=== PATIENT | female | born 1960 | race Caucasian/White ===

== ENCOUNTER → 2018-01-14 | Outpatient (CLI) | payer SELFPAY ==
[~2018-01-14] MED LIST: CYAN1000 PO; VITAMIN D-32000 UNIT PO
[2018-01-24 15:19] LABS: HPV Genotype 16 Not Detected (NOTDET); HPV Genotype 18 Not Detected (NOTDET); HPV High Risk Other Not Detected (NOTDET); Source Cervix
== END | disposition home or self-care (01) ==
LOC: LAB 12:07 → LAB SHORT 12:07
PROVIDERS: Physician Assistant
DX: Z12.4 Encounter for screening for malignant neoplasm of cervix (principal)
CPT/HCPCS: 87625; G0123

== ENCOUNTER → 2018-01-24 | Outpatient (CLI) | payer SELFPAY | LOC: PLD 11:13 → LAB 11:13 → LAB SHORT 11:13 | DX: N76.0 Acute vaginitis (principal); R87.619 Unspecified abnormal cytological findings in specimens from cervix uteri | CPT/HCPCS: 87070; 87205; 88305 ==

== ENCOUNTER 2019-05-05 07:33 | Day surgery (SDC) | payer OTHER ==
[~2019-05-05] VITALS: Ht 162.6 cm; Wt 113.3 kg
[2019-05-05] MEDS ORDERED: ADULT ASPIRIN R81 MG PO (08:18)
[2019-05-05] MEDS ORDERED: AMIT10 PO (08:25)
[2019-05-05] MEDS ORDERED: ERGO400 PO (08:26)
[2019-05-05] MEDS ORDERED: AMIT25 PO (08:26)
[2019-05-05] MEDS ORDERED: VITAMIN B122500 MCG PO (08:27)
[2019-05-05] MEDS ORDERED: Multivitamin1 EAC1 PO (08:27)
--- NOTE | 2019-05-05 09:21 | NUR ---
05/05/19 0921 Alexandria Mattson 150CC NACL FLUID DEFICIT FROM MYOSURE
--- NOTE | 2019-05-05 13:21 | NUR ---
05/05/19 1321 Jono Polo LATE ENTRY GAVE REPORT TO [facility].KT AT 1013
== END 2019-05-05 10:50 | disposition home or self-care (01) ==
LOC: ORSCSDS 07:33
PROVIDERS: Obstetrics & Gynecology
PROC: 0UDB8ZX Extraction of Endometrium, Via Natural or Artificial Opening Endoscopic, Diagnostic (ICD-10-PCS; principal; 2019-05-05 08:45)
DX: N95.0 Postmenopausal bleeding (principal); N84.0 Polyp of corpus uteri; E78.00 Pure hypercholesterolemia, unspecified; E66.01 Morbid (severe) obesity due to excess calories; Z68.41 Body mass index [BMI] 40.0-44.9, adult; Z79.899 Other long term (current) drug therapy; Z79.82 Long term (current) use of aspirin
CPT/HCPCS: 88305; J0690; J1100; J1885; J2250; J2405; J2704; J3010; J7120

== ENCOUNTER 2022-02-06 08:13 | Day surgery (SDC) | payer OTHER ==
[~2022-02-06] VITALS: Ht 162.6 cm; Wt 115.9 kg
[~2022-02-06 08:13] MED LIST changes: +ADULT ASPIRIN R81 MG PO; +AMIT10 PO; +AMIT25 PO; +BASAGLAR K100 UNIT/1 SC; +ERGO400 PO; +Multivitamin1 EAC1 PO; +VITAMIN B122500 MC1 PO; +VITAMIN B122500 MCG PO; +VITAMIN D310 MC5 PO; +VITAMIN D325 MC3 PO
--- NOTE | 2022-02-06 08:41 | NUR ---
Ambulatory in Day Surgery History, Chart, Medications and Allergies reviewed before start of procedure.Patient confirms NPO status and agrees with scheduled surgery. Pre-Op teaching done. Pt verbalizes understanding. Patient States Post-Procedure ride home has been arranged.
--- NOTE | 2022-02-06 09:08 | NUR ---
02/06/22 0908 Miri Love HISTORY,CHART, MEDICATIONS AND ALLERGIES REVIEWED BEFORE START OF PROCEDURE. PATIENT CONFIRMS NPO STATUS AND AGREES WITH SCHEDULED PROCEDURE. 3-LEAD EKG REVIEWED WITH PHYSICIAN PRIOR TO START OF PROCEDURE. MONITOR INTACT WITH CONTINUOUS PULSE OXIMETRY AND INTERMITTENT BP. SUPPLEMENTAL O2 TO BE TITRATED THROUGHOUT PROCEDURE TO MAINTAIN O2 SATURATION ABOVE 90%. PATIENT DETERMINED TO BE ASA APPROPRIATE FOR MODERATE SEDATION PRIOR TO START OF PROCEDURE BY DR. LACKEY
--- NOTE | 2022-02-06 10:06 | NUR ---
Discharge instructions reviewed with patient. Patient verbalizes understanding. Copy given to patient to take home. Discharged via wheelchair to private car for ride home.
== END 2022-02-06 10:05 | disposition home or self-care (01) ==
LOC: ORSCMMR 08:13 → ORD 09:00 → ORSCMMR 10:05
PROVIDERS: Internal Medicine Gastroenterology
PROC: 0DBM8ZX Excision of Descending Colon, Via Natural or Artificial Opening Endoscopic, Diagnostic (ICD-10-PCS; principal; 2022-02-06 09:00)
DX: Z12.11 Encounter for screening for malignant neoplasm of colon (principal); Z86.010 Personal history of colon polyps; Z80.0 Family history of malignant neoplasm of digestive organs; D12.4 Benign neoplasm of descending colon; E66.01 Morbid (severe) obesity due to excess calories; Z68.42 Body mass index [BMI] 45.0-49.9, adult; E11.9 Type 2 diabetes mellitus without complications; Z79.82 Long term (current) use of aspirin; Z79.4 Long term (current) use of insulin; Z79.899 Other long term (current) drug therapy
CPT/HCPCS: 82947; 88305; J2250; J3010; J7120

== ENCOUNTER 2022-08-14 12:29 | Emergency (ER) | payer OTHER ==
[~2022-08-14] VITALS: Ht 160 cm; Wt 117.9 kg
[2022-08-14 14:17] LABS: BASOPHILS ABSOLUTE AUTO 0.06 K/mm3 (0.00-0.23); BASOPHILS PERCENT AUTO 1 % (0-2); EOSINOPHILS ABSOLUTE AUTO 0.04 K/mm3 (0.00-0.68); EOSINOPHILS PERCENT AUTO 0 % (0-6); Hematocrit 41.6 % (33.0-51.0); Hemoglobin 13.6 g/dL (11.5-16.0); IMMATURE GRAN ABSOLUTE AUTO 0.07 K/mm3 (0.00-0.10); IMMATURE GRAN PERCENT AUTO 1 % (0-1); LYMPHOCYTES ABSOLUTE AUTO 1.91 K/mm3 (0.84-5.20); LYMPHOCYTES PERCENT AUTO 20 % (21-46); MONOCYTES ABSOLUTE AUTO 0.56 K/mm3 (0.16-1.47); MONOCYTES PERCENT AUTO 6 % (4-13); Mean Corpuscular HGB 30.8 pg (26.0-34.0); Mean Corpuscular HGB Conc 32.7 g/dL (31.5-36.5); Mean Corpuscular Volume 94 fL (80-100); Mean Platelet Volume 10.7 fL (9.1-12.4); NEUTROPHILS ABSOLUTE AUTO 7.07 K/mm3 (1.96-9.15); NEUTROPHILS PERCENT AUTO 73 % (41-73); Platelet Count 331 K/mm3 (150-400); RDW Coefficient Variation 14.2 % (11.7-14.2); RDW Standard Deviation 49.2 fL (35.1-46.3); Red Blood Cell Count 4.42 M/mm3 (3.80-5.20); White Blood Cell Count 9.71 K/mm3 (4.00-11.30)
[2022-08-14 14:39] LABS: Albumin, Blood 3.8 g/dL (3.4-5.0); Bilirubin, Total 0.3 mg/dL (0.1-1.0); Bun/Creatinine Ratio 15.2 (12.0-20.0); Calcium, Blood 9.3 mg/dL (8.5-10.1); Creatinine, Blood 0.73 mg/dL (0.40-1.00); Globulin, Blood 3.9 g/dL (2.2-4.0); Potassium, Blood 4.4 mmol/L (3.5-5.5); Total Protein, Blood 7.7 g/dL (6.4-8.2)
[2022-08-14] MEDS ORDERED: INSULIN GL100 UNIT/2 (15:40)
[2022-08-14] MEDS ORDERED: METF500 PO (15:40)
[2022-08-14 17:49] LABS: Influenza A, PCR NEGATIVE (NEGATIVE); Influenza B, PCR NEGATIVE (NEGATIVE); Resp Syncytial Virus, PCR NEGATIVE (NEGATIVE); SARS-Cov-2 (COVID-19) PCR, MMC NEGATIVE (NEGATIVE)
== END 2022-08-14 20:32 | disposition short-term general hospital (02) ==
LOC: ER 12:29
PROVIDERS: Emergency Medicine; Physician Assistant
DX: H53.9 Unspecified visual disturbance (principal); E11.9 Type 2 diabetes mellitus without complications; Z79.4 Long term (current) use of insulin; Z79.82 Long term (current) use of aspirin; Z79.899 Other long term (current) drug therapy; Z20.822 Contact with and (suspected) exposure to COVID-19
CPT/HCPCS: 0241U; 36415; 70450; 71260; 74177; 80053; 82947; 85025; A9270; J1100; J7030; Q9967

== ENCOUNTER 2022-09-23 12:22 | Emergency (ER) | payer OTHER ==
[~2022-09-23] VITALS: Ht 160 cm; Wt 108.9 kg
[~2022-09-23 12:22] MED LIST changes: +INSULIN GL100 UNIT/2 SC; +METF500 PO
[2022-09-23] MEDS ORDERED: BACTRIM DS TAB1 EAC1 PO (16:10)
[2022-09-23] MEDS ORDERED: CEPH500 PO (16:10)
== END 2022-09-23 16:20 | disposition home or self-care (01) ==
LOC: ER 12:22
DX: L02.214 Cutaneous abscess of groin (principal); L03.314 Cellulitis of groin; E11.9 Type 2 diabetes mellitus without complications; Z79.4 Long term (current) use of insulin; Z79.899 Other long term (current) drug therapy; Z79.82 Long term (current) use of aspirin
CPT/HCPCS: 10060; 99283-25

== ENCOUNTER 2022-09-26 21:48 | Inpatient (IN) | payer OTHER ==
[~2022-09-26] VITALS: Ht 160 cm; Wt 110.3 kg
[~2022-09-26 21:48] MED LIST changes: +BACTRIM DS TAB1 EAC1 PO; +CEPH500 PO
[2022-09-26 23:08] LABS: Influenza A, PCR NEGATIVE (NEGATIVE); Influenza B, PCR NEGATIVE (NEGATIVE); Resp Syncytial Virus, PCR NEGATIVE (NEGATIVE); SARS-Cov-2 (COVID-19) PCR, MMC NEGATIVE (NEGATIVE)
[2022-09-26 23:15] LABS: BASOPHILS ABSOLUTE AUTO 0.05 K/mm3 (0.00-0.23); BASOPHILS PERCENT AUTO 1 % (0-2); EOSINOPHILS ABSOLUTE AUTO 0.03 K/mm3 (0.00-0.68); EOSINOPHILS PERCENT AUTO 0 % (0-6); Hematocrit 39.9 % (33.0-51.0); Hemoglobin 13.3 g/dL (11.5-16.0); IMMATURE GRAN ABSOLUTE AUTO 0.13 K/mm3 (0.00-0.10); IMMATURE GRAN PERCENT AUTO 2 % (0-1); LYMPHOCYTES ABSOLUTE AUTO 0.89 K/mm3 (0.84-5.20); LYMPHOCYTES PERCENT AUTO 11 % (21-46); MONOCYTES ABSOLUTE AUTO 0.27 K/mm3 (0.16-1.47); MONOCYTES PERCENT AUTO 3 % (4-13); Mean Corpuscular HGB 30.4 pg (26.0-34.0); Mean Corpuscular HGB Conc 33.3 g/dL (31.5-36.5); Mean Corpuscular Volume 91 fL (80-100); Mean Platelet Volume 11.4 fL (9.1-12.4); NEUTROPHILS ABSOLUTE AUTO 7.11 K/mm3 (1.96-9.15); NEUTROPHILS PERCENT AUTO 84 % (41-73); Platelet Count 182 K/mm3 (150-400); RDW Coefficient Variation 16.3 % (11.7-14.2); Red Blood Cell Count 4.37 M/mm3 (3.80-5.20); White Blood Cell Count 8.48 K/mm3 (4.00-11.30)
[2022-09-27 00:17] LABS: Alanine Aminotransfer (ALT/SGP 40 U/L (12-78); Albumin, Blood 2.2 g/dL (3.4-5.0); Albumin/Globulin Ratio 0.5 (0.8-1.8); Alk Phos 106 U/L (50-136); Anion Gap 10 mmol/L (6-16); Aspartate Aminotrans (AST/SGOT 24 U/L (12-37); Bilirubin, Total 0.3 mg/dL (0.1-1.0); Blood Urea Nitrogen 9 mg/dL (8-24); Bun/Creatinine Ratio 11.3 (12.0-20.0); C-REACTIVE PROTEIN, EXT RANGE >19.000 mg/dL (0.000-0.300); CO2, Blood 24 mmol/L (21-32); Calcium, Blood 9.7 mg/dL (8.5-10.1); Chloride, Blood 103 mmol/L (98-108); Globulin, Blood 4.6 g/dL (2.2-4.0); Glomerular Filtration Rate 83 (60-); Glucose, Blood 238 mg/dL (70-99); Potassium, Blood 3.2 mmol/L (3.5-5.5); Sodium, Blood 137 mmol/L (136-145); Total Protein, Blood 6.8 g/dL (6.4-8.2)
[2022-09-27 00:46] LABS: Magnesium, Blood 2.1 mg/dL (1.6-2.4)
[2022-09-27] MEDS ORDERED: AMIT75 PO (10:59)
--- NOTE | 2022-09-27 15:06 | NUR ---
Upon receiving a referral for spiritual care, I visit pt. Pt talks about her medical history that really became disruptive a month and a half ago. Pt talks about her guilt for the neglect and lack of self care she has placed on her body. She also shares about her Mosque briseida that she leans on for hope, strength and healing. Pt is very clear about the fact that, because of her briseida, she has peace about if the other options don't come to pass. She tells me about her spiritual experiences and what they mean to her. She speaks about her family and the solid support that they are to her. I normailzed her struggles, reinforced helpful attitudes and practices and provided therapeutic listening and prayer. I will continue to remain available to pt and family.
--- NOTE | 2022-09-27 19:22 | NUR ---
SHIFT SUMMARY SINCE ARRIVAL TO UNIT, PT HAS BEEN WORRIED ABOUT ABSCESS. ALERT & PLEASANT BUT WORRIED. FEELS BETTER AFTER DR IRVIN ROUNDED. UP 1 ASSIST TO USE BATHROOM. MODERATE AMOUNT OF DRNG, PURULENT/SS.
--- NOTE | 2022-09-28 04:20 | NUR ---
SHIFT SUMMARY PATIENT ADMITTED FOR R LEG/GROIN ABSCESS. IV ABX STARTED AND FLUIDS RUNNING IN L AC IV. GROIN SITE WAS LANCED OPEN IN ED WITH WICK PLACED. DRAINING SEROSANGUINEOUS FLUID. REDDNESS ON R UPPER LEG TRACED WITH MARKER FOR ASSESSMENT. WARM/HOT, PAINFUL TO TOUCH. MEDICATED FOR PAIN PER EMAR. ABLE TO AMBULATE BSC 1-2 ASSIST GB, FWW. PATIENT HAD SOME WEAKNESS DUE TO PAIN. ABLE TO VOID EASILY. TOLERATED PO CL THIS SHIFT. PLAN FOR ABX AND POSSIBLY SURGICAL INTERVENTION. VSS, PATIENT DID HAVE HR ELEVATE INTO 120'S WHILE GETTING UP TO BSC AND STANDING, RETURNED TO BASELINE UPON REST. CALL LIGHT IN REACH WILL REPORT TO DAY RN.
[2022-09-28 08:53] LABS: BASOPHILS ABSOLUTE AUTO 0.03 K/mm3 (0.00-0.23); BASOPHILS PERCENT AUTO 1 % (0-2); EOSINOPHILS ABSOLUTE AUTO 0.05 K/mm3 (0.00-0.68); EOSINOPHILS PERCENT AUTO 1 % (0-6); Hematocrit 31.5 % (33.0-51.0); Hemoglobin 10.4 g/dL (11.5-16.0); IMMATURE GRAN ABSOLUTE AUTO 0.08 K/mm3 (0.00-0.10); IMMATURE GRAN PERCENT AUTO 1 % (0-1); LYMPHOCYTES ABSOLUTE AUTO 1.41 K/mm3 (0.84-5.20); LYMPHOCYTES PERCENT AUTO 25 % (21-46); MONOCYTES ABSOLUTE AUTO 0.29 K/mm3 (0.16-1.47); MONOCYTES PERCENT AUTO 5 % (4-13); Mean Corpuscular HGB 30.4 pg (26.0-34.0); Mean Corpuscular Volume 92 fL (80-100); Mean Platelet Volume 10.2 fL (9.1-12.4); NEUTROPHILS PERCENT AUTO 68 % (41-73); Platelet Count 186 K/mm3 (150-400); RDW Coefficient Variation 16.9 % (11.7-14.2); RDW Standard Deviation 56.1 fL (35.1-46.3); Red Blood Cell Count 3.42 M/mm3 (3.80-5.20); White Blood Cell Count 5.76 K/mm3 (4.00-11.30)
[2022-09-28 09:14] LABS: Albumin, Blood 1.6 g/dL (3.4-5.0); Albumin/Globulin Ratio 0.5 (0.8-1.8); Bilirubin, Total 0.5 mg/dL (0.1-1.0); Bun/Creatinine Ratio 14.1 (12.0-20.0); Calcium, Blood 8.5 mg/dL (8.5-10.1); Creatinine, Blood 0.85 mg/dL (0.40-1.00); Globulin, Blood 3.5 g/dL (2.2-4.0); Potassium, Blood 3.4 mmol/L (3.5-5.5); Total Protein, Blood 5.1 g/dL (6.4-8.2)
[2022-09-28 11:38] LABS: Vancomycin, Trough 15.8 ug/mL (5.0-10.0)
--- NOTE | 2022-09-28 13:44 | NUR ---
RECORDS FROM DR VALENCIA' OFFICE REQUESTED AT THIS TIME, PER DR KILPATRICK'S REQUEST.
--- NOTE | 2022-09-28 14:00 | NUR ---
DR IRVIN AT BEDSIDE. GAVE VERBAL ORDERS TO KEEP PATIENT NPO AFTER MIDNIGHT, PLAN FOR OR TOMORROW 09/29, EARLY-MID AFTERNOON FOR I&D OF ABCESS.
--- NOTE | 2022-09-28 17:59 | NUR ---
SHIFT SUMMARY NO ACUTE CHANGES THIS SHIFT. ABCESS TO R INNER THIGH REMAINS THE SAME IN SIZE. WICK REMAINS IN PLACE, DRAINING MODERATE AMOUNT OF SS DRAINAGE. PATIENT REPORTS SIGNIFICANT PAIN ONLY WHEN AREA IS TOUCHED/MOVED. IV ABX PER EMAR. VSS ON RA. UP TO BATHROOM WITH SBA. EATING, DRINKING, & VOIDING WELL. NPO AT MIDNIGHT, PLAN FOR I&D TOMORROW. CALLS APPROPRIATELY, IN REACH. WILL REPORT TO ONCOMING RN AT 1900.
--- NOTE | 2022-09-29 04:29 | NUR ---
SHIFT SUMMARY PATIENT NPO FOR I&D OF R UPPER THIGH/GROIN ABSCESS. SITE WAS LANCED IN ED AND LEFT STEAM GENERATING POWERPLANT MECHANIC WITH A WICK IN PLACE. DRAINING SEROSANGUINEOUS FLUID, REDDNESS AROUND UPPER THIGH AND INNER THIGH MARKED WITH PEN. PATIENT TOLERATES AMBULATING TO BATHROOM, VOIDS EASILY, MEDICATED FOR PAIN X1 THIS SHIFT. DENIES CHEST PAIN, SOB. TELE IN PLACE SINUS RHYTHM 94 PER TECH. VSS, CALL LIGHT IN REACH.
--- NOTE | 2022-09-29 11:09 | NUR ---
PATIENT TO DAY SURGERY VIA [facility] WITH PADDY LAWTON
--- NOTE | 2022-09-29 12:23 | NUR ---
09/29/22 1223 Jeff Bryant RECEIVING SCHEDULED ANTIBIOTICS, ZOSYN AND VANCO
--- NOTE | 2022-09-29 14:01 | NUR ---
PATIENT RETURNED TO ROOM FROM PACU. POWDER MONKEY INSISTED ON BEDSIDE REPORT, RECEIVED AT THIS TIME. TRANSFERRED TO BED WITH SLIDER SHEET & X4 STAFF. PATIENT TOLERATED WELL. VSS ON RA. LUNGS CLEAR. PATIENT DENIES PAIN AT THIS TIME. EDUARD DRAIN TO I&D INCISION ON R INNER THIGH, DRAINING SANGUINEOUS FLUID. GAUZE AND MESH UNDERWEAR IN PLACE TO CONTAIN DRAINAGE. CALL LIGHT IN REACH.
--- NOTE | 2022-09-29 17:50 | NUR ---
UPDATED MD ON PATIENTS CBG OF 364. DR KILPATRICK GAVE TELEPHONE ORDERS TO START PATIENTS LANTUS AT 30 UNITS BID. ORDERS ENTERED BY THIS RN.
--- NOTE | 2022-09-29 18:02 | NUR ---
SHIFT SUMMARY POD 0 I&D OF ABCESS TO RIGHT INNER THIGH. EDUARD DRAIN PLACED, DRAINING SANGUINEOUS FLUID, GAUZE IN PLACE AND CHANGED ONCE SINCE RETURN FROM OR. ORDERS TO CHANGE PRN. PAIN MANAGED WITH 1 OXY 5 PER EMAR. PATIENT UP TO BATHROOM 1P ASSIST W/ FWW & GB. EATING, DRINKING, & VOIDING WELL. CBG'S REMAIN HIGH, ORDERS RECEIVED TO START PATIENTS LONG ACTING INSULIN TONIGHT. CALLS APPROPRIATLY, WILL REPORT TO ONCOMING RN AT 1900.
[2022-09-30 05:12] LABS: BASOPHILS ABSOLUTE AUTO 0.01 K/mm3 (0.00-0.23); BASOPHILS PERCENT AUTO 0 % (0-2); EOSINOPHILS PERCENT AUTO 0 % (0-6); Hematocrit 27.8 % (33.0-51.0); Hemoglobin 9.1 g/dL (11.5-16.0); IMMATURE GRAN ABSOLUTE AUTO 0.13 K/mm3 (0.00-0.10); IMMATURE GRAN PERCENT AUTO 2 % (0-1); LYMPHOCYTES ABSOLUTE AUTO 1.29 K/mm3 (0.84-5.20); LYMPHOCYTES PERCENT AUTO 18 % (21-46); MONOCYTES ABSOLUTE AUTO 0.41 K/mm3 (0.16-1.47); MONOCYTES PERCENT AUTO 6 % (4-13); Mean Corpuscular HGB 30.6 pg (26.0-34.0); Mean Corpuscular HGB Conc 32.7 g/dL (31.5-36.5); Mean Corpuscular Volume 94 fL (80-100); Mean Platelet Volume 10.4 fL (9.1-12.4); NEUTROPHILS ABSOLUTE AUTO 5.28 K/mm3 (1.96-9.15); NEUTROPHILS PERCENT AUTO 74 % (41-73); Platelet Count 200 K/mm3 (150-400); RDW Standard Deviation 58.4 fL (35.1-46.3); Red Blood Cell Count 2.97 M/mm3 (3.80-5.20); White Blood Cell Count 7.12 K/mm3 (4.00-11.30)
[2022-09-30 05:35] LABS: Bun/Creatinine Ratio 10.3 (12.0-20.0); Calcium, Blood 8.2 mg/dL (8.5-10.1); Creatinine, Blood 1.07 mg/dL (0.40-1.00); Potassium, Blood 3.8 mmol/L (3.5-5.5)
--- NOTE | 2022-09-30 08:12 | NUR ---
SUMMARY PT REPORTS SHE IS FEELING BETTER THIS AM. PAIN IMPROVED AND LESS REDNESS TO R OUTER THIGH.PT INITIALLY UNSURE IF COULD PROVIDE EMOUGH ASSIST TO HER PHYSICALLY DUER TO HIS OWN HEALTH ISSUES.HOWEVER,SHE NOW STATES SHE MAY NOT NEED MORE HELP THAN HE CAN PROVIDE.
--- NOTE | 2022-09-30 11:14 | NUR ---
DR CUMMINGS IN TO SEE PT.
--- NOTE | 2022-09-30 18:44 | NUR ---
SUMMARY NO ACUTE CHANGES T/O SHIFT. EDUARD DRAIN DRAINING SS DRAINAGE. REDNESS RECEDING FROM OUTLINE. ADMINISTERED MEDS PER ORDERS. PT AMBULATING TO RESTROOM W/FWW. CALL LIGHT IN REACH.
--- NOTE | 2022-10-01 10:47 | NUR ---
PT TOOK HOME DEXAMETHASONE. ADVISED PT NOT TO TAKE ANYMORE, REPORTED TO DR GRIFFIN. PT VERBALIZED UNDERSTANDING.
[2022-10-01] MEDS ORDERED: Acetaminophen650 M1 PO (12:49)
[2022-10-01] MEDS ORDERED: HUMALOG KW100 UNIT/1 SC (12:52)
[2022-10-01] MEDS ORDERED: PENVK500 PO (12:53)
[2022-10-01] MEDS ORDERED: VISBIOME 112.51 EACH PO (12:53)
--- NOTE | 2022-10-01 13:17 | NUR ---
DISCHARGED DC'D IV, CATHETER INTACT. PRESCRIPTIONS FAXED TO [facility] PER PT REQUEST. REVIEWED DC INSTRUCTIONS W/PT; VERBALIZED UNDERSTANDING. PT LEFT UNIT IN WC W/POSSESSIONS AND DC PAPERWORK IN HAND, ACCOMPANIED BY SPOUSE.
== END 2022-10-01 13:18 | disposition home or self-care (01) | DRG 872 ==
LOC: ER 21:48 → SURS 09-27 05:50 → ERHOLD 09-27 05:50 → SURS 09-27 05:50
PROVIDERS: Emergency Medicine; Internal Medicine; ADMIT Internal Medicine
PROC: 0J9L0ZZ Drainage of Right Upper Leg Subcutaneous Tissue and Fascia, Open Approach (ICD-10-PCS; principal; 2022-09-27)
PROC: 3E03329 Introduction of Other Anti-infective into Peripheral Vein, Percutaneous Approach (ICD-10-PCS; 2022-09-27)
DX: A41.9 Sepsis, unspecified organism (principal); C79.31 Secondary malignant neoplasm of brain; L02.415 Cutaneous abscess of right lower limb; Z68.41 Body mass index [BMI] 40.0-44.9, adult; L03.115 Cellulitis of right lower limb; Z28.21 Immunization not carried out because of patient refusal; Z20.822 Contact with and (suspected) exposure to COVID-19; E11.9 Type 2 diabetes mellitus without complications; C50.912 Malignant neoplasm of unspecified site of left female breast; D63.8 Anemia in other chronic diseases classified elsewhere; E66.01 Morbid (severe) obesity due to excess calories; Z86.010 Personal history of colon polyps; Z90.89 Acquired absence of other organs; Z90.710 Acquired absence of both cervix and uterus; Z98.890 Other specified postprocedural states; Z79.2 Long term (current) use of antibiotics; Z79.4 Long term (current) use of insulin; Z79.899 Other long term (current) drug therapy
CPT/HCPCS: 0241U; 10061; 36415; 74177; 80048; 80053; 80202; 82947; 83605; 83735; 84145; 85025; 85651; 86140; 87040; 87070; 87075; 87077; 87106; 87147; 87186; 87205; 93005; 93010; 96365-59; 96366-59; 96368; 96375; 96375-59; 96376-59; 99285-25; A9270; J1100; J1170; J1650; J1815; J2250; J2370; J2405; J2543; J2704; J3010; J3370; J3480; J7030; J7050; J7120; Q9967

== ENCOUNTER 2023-01-16 17:21 | Inpatient (IN) | payer OTHER ==
[~2023-01-16] VITALS: Ht 162.6 cm; Wt 78.2 kg
[~2023-01-16 17:21] MED LIST changes: +AMIT75 PO; +Acetaminophen650 M1 PO; +HUMALOG KW100 UNIT/1 SC; +PENVK500 PO; +VISBIOME 112.51 EACH PO
[2023-01-16 18:02] LABS: BASOPHILS ABSOLUTE AUTO 0.07 K/mm3 (0.00-0.23); BASOPHILS PERCENT AUTO 1 % (0-2); EOSINOPHILS ABSOLUTE AUTO 0.11 K/mm3 (0.00-0.68); EOSINOPHILS PERCENT AUTO 1 % (0-6); Hematocrit 38.5 % (33.0-51.0); Hemoglobin 12.6 g/dL (11.5-16.0); IMMATURE GRAN ABSOLUTE AUTO 0.02 K/mm3 (0.00-0.10); IMMATURE GRAN PERCENT AUTO 0 % (0-1); LYMPHOCYTES ABSOLUTE AUTO 1.73 K/mm3 (0.84-5.20); LYMPHOCYTES PERCENT AUTO 20 % (21-46); MONOCYTES ABSOLUTE AUTO 0.79 K/mm3 (0.16-1.47); MONOCYTES PERCENT AUTO 9 % (4-13); Mean Corpuscular HGB 31.5 pg (26.0-34.0); Mean Corpuscular HGB Conc 32.7 g/dL (31.5-36.5); Mean Corpuscular Volume 96 fL (80-100); Mean Platelet Volume 10.7 fL (9.1-12.4); NEUTROPHILS ABSOLUTE AUTO 6.03 K/mm3 (1.96-9.15); NEUTROPHILS PERCENT AUTO 69 % (41-73); Platelet Count 434 K/mm3 (150-400); RDW Coefficient Variation 15.3 % (11.7-14.2); RDW Standard Deviation 53.7 fL (35.1-46.3); White Blood Cell Count 8.75 K/mm3 (4.00-11.30)
[2023-01-16 18:29] LABS: Albumin, Blood 3.3 g/dL (3.4-5.0); Albumin/Globulin Ratio 0.8 (0.8-1.8); Bilirubin, Total 0.5 mg/dL (0.1-1.0); Bun/Creatinine Ratio 20.7 (12.0-20.0); Calcium, Blood 9.4 mg/dL (8.5-10.1); Creatinine, Blood 0.73 mg/dL (0.40-1.00); Globulin, Blood 4.1 g/dL (2.2-4.0); Potassium, Blood 3.5 mmol/L (3.5-5.5); Total Protein, Blood 7.4 g/dL (6.4-8.2)
[2023-01-16 21:28] LABS: Source, Urine Clean Catch
[2023-01-16 21:49] LABS: Appearance, Urine Cloudy (Clear); Bilirubin, Urine Neg (Neg); Blood, Urine 3+ (Neg); Color, Urine Yellow (P-Yellow); Glucose Qualitative, Urine Neg (Neg); Ketones, Urine 2+ (Neg); Leukocyte Esterase, Urine 3+ (Neg); Nitrite, Urine Neg (Neg); Protein, Urine 2+ (Neg); Specific Gravity, Urine 1.025 (1.003-1.022); Urobilinogen, Urine NORM (Normal)
[2023-01-16 22:12] LABS: Bacteria Mod /hpf; Hyaline Casts 0-2 /lpf (0-2); Red Blood Cells, Urine 0-2 /hpf (0-2); Squamous Epithelial Cells Mod /hpf (Few); White Blood Cells, Urine 25-50 /hpf (0-5)
--- NOTE | 2023-01-17 11:02 | NUR ---
PT ARRIVED TO ROOM AT 0930 AOX3. PT ABLE TO FOLLOW DIRECTION AND COOPERATIVE OF CARE. CALL LIGHT PLACED WITH PT AND SHE WAS SETTLED INTO ROOM. NO DISTRESS NOTED AT THIS TIME WILL CONTINUE TO MONITOR.
--- NOTE | 2023-01-17 14:20 | NUR ---
Multiple visits this afternoon. Pt A&OX3 and unable to verbalize appropriate reason for hospital stay. As conversation continues Pt appears to struggle with understanding. Pt does deny pain, dyspnea, and nausea. She does report some anxiety. Pt agreeable for this RN to return when spouse arrives to visit. Spouse arrives and this RN reviews plan of care and answers questions. Engaged in therapeutic conversation regarding Pt's code status wishes. Educated on life sustaining treatments inluding risk factors and implications to CPR/Intubation. Offered therapeutic listening and answered questions. Pt's wishes are to remain a full code. Listened as spouse reports plan to see Dr Olivo once Dr Olivo returns from vacation. Continued answering questions and deferred some questions for Dr Romero. Placed ST order for cognitive evaluation per V/O from Dr Romero. Dr Romero will come see spouse to review plan of care and recommendations. Palliative Care will remain available
--- NOTE | 2023-01-17 16:59 | NUR ---
PT IS AOX3 WITH CONFUSION. PT DOES WELL AT TIMES, BUT CAN'T KEEP THINGS TOLD TO HER STRAIGHT AND GETS CONFUSED. PT SEEMS TO RELY ON TO ORIENT HERSELF AT THIS TIME. PT NEEDS TO BE A ONE PERSON TO TRANSFER SHE REPORTS FALLING AT HOME MULTIPLE TIMES. DENIES PAIN. BED ALARM IN PLACE AND CALL LIGHT WITHIN REACH.
[2023-01-18 06:27] LABS: BASOPHILS ABSOLUTE AUTO 0.05 K/mm3 (0.00-0.23); BASOPHILS PERCENT AUTO 1 % (0-2); EOSINOPHILS ABSOLUTE AUTO 0.11 K/mm3 (0.00-0.68); EOSINOPHILS PERCENT AUTO 1 % (0-6); Hematocrit 36.7 % (33.0-51.0); Hemoglobin 11.6 g/dL (11.5-16.0); IMMATURE GRAN ABSOLUTE AUTO 0.02 K/mm3 (0.00-0.10); IMMATURE GRAN PERCENT AUTO 0 % (0-1); LYMPHOCYTES ABSOLUTE AUTO 1.86 K/mm3 (0.84-5.20); LYMPHOCYTES PERCENT AUTO 24 % (21-46); MONOCYTES ABSOLUTE AUTO 0.79 K/mm3 (0.16-1.47); MONOCYTES PERCENT AUTO 10 % (4-13); Mean Corpuscular HGB 30.1 pg (26.0-34.0); Mean Corpuscular HGB Conc 31.6 g/dL (31.5-36.5); Mean Corpuscular Volume 95 fL (80-100); Mean Platelet Volume 10.1 fL (9.1-12.4); NEUTROPHILS ABSOLUTE AUTO 5.03 K/mm3 (1.96-9.15); NEUTROPHILS PERCENT AUTO 64 % (41-73); Platelet Count 391 K/mm3 (150-400); RDW Coefficient Variation 15.6 % (11.7-14.2); RDW Standard Deviation 54.5 fL (35.1-46.3); Red Blood Cell Count 3.86 M/mm3 (3.80-5.20); White Blood Cell Count 7.86 K/mm3 (4.00-11.30)
[2023-01-18 06:59] LABS: Albumin, Blood 2.9 g/dL (3.4-5.0); Albumin/Globulin Ratio 0.8 (0.8-1.8); Bilirubin, Total 0.4 mg/dL (0.1-1.0); Bun/Creatinine Ratio 15.6 (12.0-20.0); Calcium, Blood 8.9 mg/dL (8.5-10.1); Creatinine, Blood 0.64 mg/dL (0.40-1.00); Globulin, Blood 3.8 g/dL (2.2-4.0); Magnesium, Blood 1.8 mg/dL (1.6-2.4); Total Protein, Blood 6.7 g/dL (6.4-8.2)
--- NOTE | 2023-01-18 18:07 | NUR ---
SHIFT SUMMARY: NO ACUTE EVENTS. REMAINS CONFUSED ABOUT HER CONDITION, REPEATS QUESTIONS. WATTS DRAINING ADEQUATE URINE. WORKED WITH PHYSICAL THERAPY TODAY. DID NOT REQUIRE PRN MEDS FOR AGITATION THIS SHIFT. POTASSIUM REPLACED. SIGNIFICANT BRUISING ON L SIDE, L HIP, L CALF. WHEN TALKING TO PATIENT, IT IS EVIDENT THAT SHE DOES NOT UNDERSTAND THE SEVERITY OF HER CANCER. SPENT MOST OF THE AFTERNOON ON THE PHONE WITH FRIENDS. SPOUSE VISITED WITH THEIR DOG THIS AFTERNOON.
[2023-01-19 06:09] LABS: Bun/Creatinine Ratio 11.2 (12.0-20.0); Creatinine, Blood 0.63 mg/dL (0.40-1.00); Potassium, Blood 3.5 mmol/L (3.5-5.5)
--- NOTE | 2023-01-19 10:02 | NUR ---
VERBAL FROM DR. HOLDER FOR OK TO DC FLUIDS, OK TO HAVE NO IV. 01/19/23 0945.
--- NOTE | 2023-01-19 12:54 | NUR ---
Spoke with Occupational Therapy Specialist Flower and reviewed plan of care. Plan for Dr Romero to start IV steroids and recpeat CT of head per recommendations from oncology. Pt resting in bed upon arrival. Spouse at bedside. Pt keeps reporting wanting to go home and states she can go home and pay the bills. She states then she can "go to the next hospital". Pt struggling to understand the need for care. Gentle conversation with Pt and spouse regarding the importance of spouse managing Pt's medications and bills due to her cognitive decline. Spouse states Pt does ok with bills. Difficult to determine if he was making this statement to appease Pt or if he is in denial of Pt's cognitive decline. Continued therapeutic visit. Engaged in discussion regarding planning for the future as cancer takes its coarse. Ended visit to allow Pt and spouse to visit. Spoke with Primary RN Traci and discussed case. Palliative Care will remain available.
--- NOTE | 2023-01-19 17:13 | NUR ---
SHIFT SUMMARY- PT AAOX3 TODAY. DISORIENTED ABOUT HER SITUATION. DENIES ANY PAIN THIS SHIFT. CALM AND COOPERATIVE THIS SHIFT.
--- NOTE | 2023-01-20 04:38 | NUR ---
Summary: No acute events overnight. IV decadron given q6hr. Patient has a braun in place. Family visited patient before bed. VSS. Patient AOx3, disoriented to situation. Compliant with all care provided. 2x assist to get to bedside commode.
--- NOTE | 2023-01-20 09:00 | NUR ---
PT PRETTY ANXIOUS THIS AM. STATES CONCERNS WHERE IS. ASSISTED HER TO CALL HIM. THIS HELPED SOME. DISCUSSED WITH DR MAY BE HELPFUL TO GET SOME MEDS FOR ANX. PT ALOER TO SELF AND FAM. CONFUSED. ANX. SOME PAIN IN GROIN, B[place], VULVA AREA, EXPRESSED THIS MAY BE FROM WATTS. IT PRESENTS CLEAN AND INTACT. WILL SPEAK TO ABOOUT REMOVAL IF APPROP. H/R REG, NOMURMUR NOTED. N9O TELE. LUNGS CLEAR, RESP EASY, UNLABORED. ON R/A. BT X4 LAST BM YEST. VOIDS WATTS YELLOW FLUID DRAINING. BED IN LOW POSITION, CALLITE IN REACH. BED ALARM ON FOR SAFETY
--- NOTE | 2023-01-20 16:16 | NUR ---
PT CALLING STAFF NAMES THEN CLAIMING WE CALLED HER NAMES. NOW IS STATING SHE WILL POLLO ME IF I DONT GET HER PICS OFF THE PUBLIC INTERNET. NICOLE IN ROOM AND WITNESSED HER DISCUSSION. FLYER MAKER CALLED TO ROOM TO TALK TO HER. CALLED TO ASK FOR SOMETHING TO CALM HER SOME. ORDERS PENDING
--- NOTE | 2023-01-20 17:34 | NUR ---
CALLED BANDAR BOUCHER TO SWITCH HALDOL FROM PO SOLUTION TO PO TABS. SAME DOSE
--- NOTE | 2023-01-20 18:00 | NUR ---
PT HAS BEEN AGITATED SOME TODAY. HALLUCINATING THAT WE WERE CALLING HER NAMES, THEN WITH INSOLE CHANNELER AND SPOUSE AT BEDSIDE, SAID SAID WE WERE POSTING HER PERSONAL PHOTOS ON [facility] WITH HER PHONE. MADE THREATS AGAINST US. STATES THIS HAS BEEN HAPPENING AND SHE IS NOT IN HER RIGHT MIND, I WAS ABLE TO GET HALDOL PO ORDERS. GIVEN, SHE MUCH MORE PLEASANT AT THIS TIME. HUSB STILL AT BEDSIDE. BED IN LOW POSITION, CALL LITE IN REACH, BED ALARM ON FOR SAFETY
--- NOTE | 2023-01-20 22:36 | NUR ---
PT VERY CONFUSED ANS PARANOID. PT THINKING THIS IS HER HOUSE AND WE ARE IN T THINKING THAT RN SITTING AT DESK CARTING IS IN HER KITCHEN DOING THINGS WITH HER STUFF. PT REFUSING TO TAKE MEDS OR TO LET INSULING BE ADMINISTRED. CALLEDS PT AND PT THINKING HE IS NOT AT HOME AND DEMANDING HE COME. PT THINKING IS IN ON THE CONSPIRACY. TOO SOON FOR SECDUALED EJL GOT ORDR FOR 1 X NOW ORDER. PT GIVEN 2.5 MG NOW ORDER. HAD TO HAVE OTHERS HOLD ARMS SO MED CULD BE GIVEN. PT A FEW MIN LATTER WILLING TO PAM HER PO MEDS. PT UP TO BR WITH NO RESULTS. PT BLADDER SCANED, PT HAD WATTS CATH REMOVED TODAY PER PT REQUEST.
--- NOTE | 2023-01-21 04:04 | NUR ---
PT AT TIS TIME RESTING IN BED,PT APPEARS TO BE COMFORTABLE RSPRATIONS EVEN NAD UNLABORED. EARLYER PT TRYING TO GET OUT OF BED VERY PARANOID AND SUSPICIOUS OF EERYONE AND EVERYTHING. THINKING WE WERE IN HER HOUSE MESSING WITH HER THINGS, REFUSED ALL MEDS INCLUDING INSULIN. CALLED TO TALK TO HER AND SHE SAID HE WAS NOT AT HOME AND WHAT WAS HE DOING HE WAS IN ON IT, HE NEEDED TO GET HOME NOW AND BE WITH HER. PT GIVEN HALDOL IV WITH HELP. PT THEN SEEMED LESS ANGERY AND WAS COOPERATIVE TAKING MEDS, UP TO BSC WITH 2 ASIST PT NOT ABLE TO WALK. PT WAS BLADER SCANED AND HAD LESS THAN 200 ML IN BLADDER. CALL LIGHT IN REACH BED ALARM ON.
[2023-01-21 05:02] LABS: BASOPHILS PERCENT AUTO 0 % (0-2); EOSINOPHILS PERCENT AUTO 0 % (0-6); Hematocrit 38.3 % (33.0-51.0); Hemoglobin 12.1 g/dL (11.5-16.0); IMMATURE GRAN ABSOLUTE AUTO 0.04 K/mm3 (0.00-0.10); IMMATURE GRAN PERCENT AUTO 1 % (0-1); LYMPHOCYTES ABSOLUTE AUTO 0.88 K/mm3 (0.84-5.20); LYMPHOCYTES PERCENT AUTO 11 % (21-46); MONOCYTES ABSOLUTE AUTO 0.44 K/mm3 (0.16-1.47); MONOCYTES PERCENT AUTO 5 % (4-13); Mean Corpuscular HGB 29.7 pg (26.0-34.0); Mean Corpuscular HGB Conc 31.6 g/dL (31.5-36.5); Mean Corpuscular Volume 94 fL (80-100); Mean Platelet Volume 10.8 fL (9.1-12.4); NEUTROPHILS ABSOLUTE AUTO 6.85 K/mm3 (1.96-9.15); NEUTROPHILS PERCENT AUTO 83 % (41-73); Platelet Count 414 K/mm3 (150-400); RDW Coefficient Variation 15.5 % (11.7-14.2); RDW Standard Deviation 53.6 fL (35.1-46.3); Red Blood Cell Count 4.08 M/mm3 (3.80-5.20); White Blood Cell Count 8.21 K/mm3 (4.00-11.30)
[2023-01-21 05:19] LABS: Bun/Creatinine Ratio 29.2 (12.0-20.0); Calcium, Blood 9.5 mg/dL (8.5-10.1); Creatinine, Blood 0.72 mg/dL (0.40-1.00)
--- NOTE | 2023-01-21 05:23 | NUR ---
0520 PT STRIGHT CATH, PT HAD 611 SHOWN IN BLADDER WITH SCAN. 600 ML OUT FROM CATH. PT TOLERATED WELL BUT VERY SORE FROM PREVIOUS CATH. CALL LIGHT IN REACH BED ALRM ON.
--- NOTE | 2023-01-21 09:42 | NUR ---
ATTEMPTED TO GIVE AM MEDS PT ADAMENTLY REFUSED MEDS AND INSULIN. WILL ATTEMPT AGAIN WHEN HERE THIS AM IF APPROP. STATES GOING TO GO HOME. REFUSED ME TO ASSIST HER TO CALL FOR HER. H/R REG, NO MURMUR NOTED. NO TELE. LUNGS CLEAR, RESP EASEY, UNLABORED. IS FLUSHED IN FACE. FURTHER ASSESMENT REFUSED. BED IN LOW POSITION, CALL LITE IN REACH, BED ALARM ON FOR SAFETY
--- NOTE | 2023-01-21 18:28 | NUR ---
PT QUITE ANX THIS AM. SHE REFUSED MEDS UNTIL SHORTLY AFTER NOON WHEN HUSB IN. SHE THEN TOOK SOME MEDS. HALDOL DOES HELP CALM HER SOME. PT DID FINALLY SIT ON COMMODE AND HAD URINE. NO OTHER CONCERNS NOTED. BED IN LOW POSITION, CALL LITE IN REACH. BED ALARM ON FOR SAFETY
--- NOTE | 2023-01-22 17:16 | NUR ---
SHIFT SUMMARY PT A&OX3 AND COOPERATIVE OF CARE. AT START OF SHIFT, PT WAS ANXIOUS TO GET CLEANED UP AND SHOWER BECAUSE SHE THOUGHT SHE WAS GOING HOME. FAMILY AT BEDSIDE FOR MOST OF DAY. PALLATIVE CARE AND CASE MANAGMENT SPOKE WITH PT AND FAMILY IN AFTERNOON AND IT WAS DECIDED THAT PT WOULD DC HOME WITH HOSPICE TOMORROW AT 1000. BLADDER SCANNED AT 1230 AND 317ML NOTED. PT UP TO BC T/O DAY AND ABLE TO VOID. PT VERY WOBBLY AND APPEARS TO BE SCARED OF FALLING WHEN GETTING OOB WITH GB.
[2023-01-23] MEDS ORDERED: OXYC5 PO (09:02)
[2023-01-23] MEDS ORDERED: DOCU100 PO (09:02)
[2023-01-23] MEDS ORDERED: HALO2 PO (09:02)
--- NOTE | 2023-01-23 09:27 | NUR ---
PLANNED TRANSPORT FOR 1000 THIS RN ATTEMPTED TO CONTACT SPOUSE W/ NO ANSWER FOR DC DIRECTION, NOTE ON PT BOARD STATING NOT TO PROVIDE PT DC INSTRUCTION W/ OUT SPOUSE PRESENT. CARE MANAGEMENT CONTACTED, SPOUSE AND DAUGHTER AWARE OF PENDING 10AM TRANSFER.
--- NOTE | 2023-01-23 10:33 | NUR ---
DISCHARGE TRASPORT VIA [facility] AT BEDSIDE, HOME ON HOSPICE W/ BRISTOL. IV DC'ED. VSS. 2X MAX TO [facility]. PT DENIES PAIN, FAMILY VERBALIZING CONCERN ABOUT DC PLAN [facility] [place] MAN[facility] SPOKE TO DAUGHTER AND SPOUSE.
== END 2023-01-23 10:24 | disposition hospice, home (50) | DRG 689 ==
LOC: ER 17:21 → MEDS 17:22
PROVIDERS: Emergency Medicine; Family Medicine; Internal Medicine; ADMIT Student in an Organized Health Care Education/Training Program
DX: N13.6 Pyonephrosis (principal); G92.8 Other toxic encephalopathy; C79.32 Secondary malignant neoplasm of cerebral meninges; N20.0 Calculus of kidney; C50.912 Malignant neoplasm of unspecified site of left female breast; Z51.5 Encounter for palliative care; Z66 Do not resuscitate; R53.1 Weakness; R33.9 Retention of urine, unspecified; R26.81 Unsteadiness on feet; B95.1 Streptococcus, group B, as the cause of diseases classified elsewhere; E87.6 Hypokalemia; F03.90 Unspecified dementia, unspecified severity, without behavioral disturbance, psychotic disturbance, mood disturbance, and anxiety; M79.604 Pain in right leg; E11.9 Type 2 diabetes mellitus without complications; Z79.4 Long term (current) use of insulin; Z79.2 Long term (current) use of antibiotics; Z79.899 Other long term (current) drug therapy; Z92.3 Personal history of irradiation; Z98.890 Other specified postprocedural states
CPT/HCPCS: 36415; 51702; 51798; 70470; 71046; 72128; 72131; 72157; 72158; 80048; 80053; 81001; 82947; 83735; 83880; 84484; 85025; 87086; 87147; 92523; 92526; 93005; 93010; 96372; 96372-59; 96374-59; 97110; 97129; 97130; 97162; 97530; 99285-25; A9270; A9579; G0378; J0696; J1100; J1630; J1650; J1815; J7030; Q9967